=== PATIENT | male | born 1995 | race African-American/Black ===

== ENCOUNTER 2024-05-03 10:05 | Emergency (ER) | payer SELFPAY ==
[2024-05-03 10:19] VITALS: BP 105/64; PULSE 100; RESP 20; TEMP 100.3; BMI 24.3
[2024-05-03] MEDS ORDERED: ACETAMINOPHEN 500 MG TABLET (FP) ONE (10:52)
[2024-05-03] MEDS ORDERED: FAMOTIDINE 20 MG TABLET ONE (10:52)
[2024-05-03] MEDS ORDERED: MAG HYDROX/AL HYDROX/SIMETH 30 ML UNIT-DOSE CUP ONE (10:52)
[2024-05-03] MEDS: ACETAMINOPHEN 500 MG TABLET (FP) PO ONE (10:55)
[2024-05-03] MEDS: MAG HYDROX/AL HYDROX/SIMETH 30 ML UNIT-DOSE CUP PO ONE (10:55)
[2024-05-03] MEDS: FAMOTIDINE 20 MG TABLET PO ONE (10:55)
== END 2024-05-03 12:10 | disposition home or self-care (01) ==
LOC: JER 10:05
DX: J10.1 Influenza due to other identified influenza virus with other respiratory manifestations (principal); R05.9 Cough, unspecified; R09.81 Nasal congestion; R10.13 Epigastric pain; R06.6 Hiccough; Z20.822 Contact with and (suspected) exposure to COVID-19
CPT/HCPCS: 0241U-QW; 99283-25